=== PATIENT | female | born 1980 | race Caucasian/White ===

== ENCOUNTER 2017-10-08 05:49 | Inpatient (IN) | payer SELFPAY ==
[~2017-10-08] VITALS: Ht 165.1 cm; Wt 111.3 kg
--- NOTE | 2017-10-08 06:08 | PREOPHP ---
DATE OF ADMISSION: 10/08/2017 REASON FOR ADMISSION: 1. Repeat . 2. Preeclampsia 3. Obesity. 4. The patient desires sterilization, 5. Previous section. HISTORY OF PRESENT ILLNESS: This is a 37-year-old female, 5, para 4, who had a previous ray arean section for placenta previa in May 2014, at [facility]. Her EDC confirmed by ultrasound is 1 12/29/2016. Primarily a repeat section was planned for her to perform also a tubal ligation at her request at 39 weeks' gestation. However, she has developed preeclampsia. She is being admi tted and delivered at 37 weeks. She has had elevated blood pressures several times this last week i n the office and mild pedal edema and 2+ protein in the urine. She has denied any other symptoms in cluding headaches and dizziness or blurred vision. She has had no history of previous -ind uced hypertension with the other pregnancies. She has requested sterilization on the basis of multi parity. The alternatives, risks, benefits, and possible complications of both a repeat section and the tubal ligation were discussed with the patient at great length at the office. She was allowed t o ask questions. She was wound about a 1% failure rate of this procedure of sterilization and then she signed the appropriate surgical informed consents. All questions were answered to her satisfact ion. OBSTETRICAL HISTORY: The patient denies any medical problems including diabetes, hypertension, card iovascular disease, liver disease, renal disease, neurological disease, or thyroid problems. ALLERGIES: No known allergies. MEDICATIONS: She takes no medications, but vitamins only. OBSTETRICAL HISTORY: She had 5 pregnancies, 3 that were delivered normally vaginally and the fourth one by section due to placenta previa. REVIEW OF SYSTEMS: A 12-point review of systems is noncontributory. FAMILY HISTORY: Noncontributory. PHYSICAL EXAMINATION: GENERAL: Well-developed and nourished, in no distress, alert and oriented x3. The height is 5 feet 5 inches and a weight is 256 pounds. VITAL SIGNS: Showed the temperature to be 98, blood pressure is 150/80, respirations are 16 per min jovanna. Pulse is 80/minute, regular. HEENT: Within normal limits. The pupils are PERRLA. NECK: Supple. Thyroid is nonpalpable. There is no lymphadenopathy. BREASTS: Show no masses or lumps. LUNGS: Clear to percussion and auscultation. HEART: Normal sinus rhythm without a murmur. ABDOMEN: Soft. The uterus enlarged up to 34 cm above the pubic bone. There is a single baby, long itudinal lie, cephalic presentation. heart is category 1. PELVIC: The cervix is long and closed. Presenting part still high and the membranes are intact. EXTREMITIES: 1+ pedal edema. No varicose veins are present. NEUROLOGIC: Normal. Reflexes are normal. IMPRESSION: 1. 37 weeks gestation. 2. Previous section. 3. Multiparity. 4. Obesity. 5. -induced hypertension. 6. Previous sections. To be admitted tomorrow and delivered by repeat section. Dictated By: MIRA MACKEY/LAM Conf#: [id number] DID#: [id number]
[2017-10-08 06:17] VITALS: Ht 165.1 cm; Wt 111.3 kg
[2017-10-08] MEDS ORDERED: PREN1TAB79 PO (06:17)
[2017-10-08] MEDS ORDERED: CALC600T5 PO (06:17)
[2017-10-08] MEDS ORDERED: MISOPROSTOL 200 MCG TAB PR PRN ×2 (06:30→09:30)
[2017-10-08] MEDS ORDERED: OXYTOCIN 30 UNITS/LR 500 ML IV PRN ×2 (06:30→09:30)
[2017-10-08] MEDS ORDERED: METHYLERGONOVINE 0.2 MG INJ IM PRN (06:30)
[2017-10-08] MEDS ORDERED: CEFAZOLIN 2 GM/50 ML (PMX) 50 ML IV SCH (06:30)
[2017-10-08] MEDS ORDERED: OXYTOCIN 30 UNITS/LR 500 ML IV SCH (06:30)
[2017-10-08] MEDS ORDERED: CARBOPROST 250 MCG INJ IM PRN ×2 (06:30→09:30)
[2017-10-08] MEDS: LACTATED RINGER'S 1,000 ML IV SCH ×4 (06:38→21:50)
[2017-10-08 06:39] LABS: BASOPHIL # 0.1 10^3/ul (0.0-0.1); BASOPHILS % 0.9 % (0.0-2.0); EOSINOPHILS # 0.2 10^3/ul (0.0-0.5); HEMATOCRIT 34.6 % (37.0-47.0); HEMOGLOBIN 11.8 g/dl (12.0-16.0); LYMPHOCYTES % 30.6 % (15.0-51.0); MEAN CORPUSCULAR HEMOGLOBIN 28.5 pg (29.0-33.0); MEAN CORPUSCULAR HGB CONC 34.1 g/dl (32.0-37.0); MEAN CORPUSCULAR VOLUME 83.6 fl (82.0-101.0); MEAN PLATELET VOLUME 11.5 fl (7.4-10.4); MONOCYTE # 0.4 10^3/ul (0.3-0.9); MONOCYTES % 6.6 % (0.0-11.0); NEUTROPHIL # 3.9 10^3/ul (1.6-7.5); NEUTROPHILS % 58.4 % (39.0-77.0); PLATELET COUNT 191 10^3/UL (140-415); RED BLOOD COUNT 4.14 10^6/ul (4.20-5.40); RED CELL DISTRIBUTION WIDTH 14.7 % (11.5-14.5); WHITE BLOOD COUNT 6.7 10^3/ul (4.8-10.8)
[2017-10-08 07:03] LABS: ALBUMIN 2.6 g/dl (3.3-4.9); ALBUMIN/GLOBULIN RATIO 0.81; BILIRUBIN,INDIRECT 0.2 mg/dl (0-1.1); BILIRUBIN,TOTAL 0.2 mg/dl (0.2-1.3); CALCIUM 8.6 mg/dl (8.4-10.2); CREATININE 0.87 mg/dl (0.44-1.00); POTASSIUM 4.4 mmol/L (3.5-5.1); TOTAL PROTEIN 5.8 g/dl (6.1-8.1); URIC ACID 6.7 mg/dl (3.1-7.9)
[2017-10-08 07:04] LABS: INR 0.81; PARTIAL THROMBOPLASTIN TIME 27.2 Sec (25.0-35.0); PROTIME 11.2 Sec (11.9-14.9); PT RATIO 0.9
[2017-10-08] MEDS ORDERED: PHENYLephrine (100 MCG/ML) 5ML SYG ONE ×2 (07:57→08:16)
[2017-10-08] MEDS ORDERED: FENTAnyl 50 MCG/ML VIAL ONE (07:57)
[2017-10-08] MEDS ORDERED: morphine SULFATE/PF (10 MG/10 ML) INJ ONE (07:57)
[2017-10-08 07:59] LABS: ADD UMIC YES; UR ASCORBIC ACID NEGATIVE (NEGATIVE); UR BACTERIA FEW /HPF (NONE SEEN); UR BILIRUBIN (Dip) NEGATIVE (NEGATIVE); UR BLOOD (Dip) NEGATIVE (NEGATIVE); UR CLARITY CLEAR (CLEAR); UR COLOR YELLOW (YELLOW); UR GLUCOSE (Dip) NEGATIVE (NEGATIVE); UR KETONES (Dip) NEGATIVE (NEGATIVE); UR LEUKOCYTE ESTERASE (Dip) NEGATIVE Leu/ul (NEGATIVE); UR NITRITE (Dip) NEGATIVE (NEGATIVE); UR RBC 1 /HPF (0-5); UR SPECIFIC GRAVITY (Dip) 1.007 (1.003-1.030); UR SQUAMOUS EPITHELIAL CELL FEW /HPF (FEW); UR TOTAL PROTEIN (Dip) 3+ mg/dl (NEGATIVE); UR UROBILINOGEN (Dip) NEGATIVE (NEGATIVE)
[2017-10-08] MEDS ORDERED: DEXAMETHASONE 4 MG/ML 1 ML INJ ONE (08:14)
[2017-10-08] MEDS ORDERED: ONDANSETRON 4 MG INJ ONE (08:14)
[2017-10-08] MEDS ORDERED: EPHEDrine SULFATE 50 MG/5 ML SYG ONE (09:18)
--- NOTE | 2017-10-08 09:19 | SIPON ---
Date/Time of Note Date/Time of Note See dictated note. DATE: 10/08/17 TIME: 09:15 Operative Report Preoperative Diagnosis 37 weeks.previous . PIH,Multiparity Postoperative Diagnosis Same.IUGR baby girl. Operation/Procedure Performed Repeat C-Sction.Bilateral tubal ligation. Surgeon Dr.Carlos Alek Finnegan MD historian research assistant . Anesthesia: spinal Estimated blood loss: other Transfusion Required none Specimen Portions of fallopian tubes. Grafts/Implants none Complications none MIRA FINNEGAN MD Oct 08, 2017 09:19
[2017-10-08] MEDS ORDERED: HYDROCODONE/APAP (5/325) TAB PO PRN ×2 (09:30)
[2017-10-08] MEDS ORDERED: LANOLIN 7 GM TUBE TOP PRN (09:30)
[2017-10-08] MEDS ORDERED: KETOROLAC 30 MG INJ IV PRN (10:00)
[2017-10-08] MEDS ORDERED: NALBUPHINE HCL (10 MG/1 ML) INJ IV PRN (10:00)
[2017-10-08] MEDS ORDERED: HYDROmorphONE 0.5 MG/0.5 ML SYG IV PRN ×2 (10:00)
[2017-10-08] MEDS ORDERED: ONDANSETRON 4 MG INJ IV PRN (10:00)
[2017-10-08] MEDS ORDERED: ZOLPIDEM 5 MG TAB PO PRN (10:00)
[2017-10-08] MEDS ORDERED: DIPHENHYDRAMINE 50 MG INJ IV PRN (10:00)
[2017-10-08] MEDS ORDERED: NALOXONE (0.4 MG/ML) INJ IV PRN (10:00)
[2017-10-08] MEDS: OXYTOCIN 30 UNITS/LR 500 ML IV SCH ×3 (10:52→15:59)
--- NOTE | 2017-10-08 12:13 | OPR ---
DATE OF OPERATION: 10/08/2017 PREOPERATIVE DIAGNOSES: 1. 37 weeks gestation. 2. Previous section. 3. -induced hypertension 4. Obesity. 5. Multiparity. POSTOPERATIVE DIAGNOSES: 1. 37 weeks gestation. 2. Previous section. 3. -induced hypertension 4. Obesity. 5. Multiparity. 6. Baby girl, intrauterine growth retardation. OPERATION PERFORMED: Repeat low segment transverse section. Bilateral tubal ligation. SURGEON: Mira Finnegan MD. ORAL PATHOLOGIST: Dr. Elizabeth Lanier ANESTHESIA: Spinal. ESTIMATED BLOOD LOSS: 600 mL. COMPLICATIONS: None. SPECIMENS: Portions of both fallopian tubes were sent to pathology. PROCEDURE AND FINDINGS: With the patient under spinal anesthesia, lying on the table in the dorsal recumbent position, tilted to the left side. She had a Dillon catheter draining her bladder. Her ab domen and upper thighs were prepped with ChloraPrep and after 3 minutes, she was draped in the usual sterile fashion for this procedure. A Pfannenstiel incision was done and carried through all layer s of abdominal wall. Once in the abdomen, the uterine segment was opened transversely and a living female child was delivered and immediately handed to the respiratory team supervisor wire rope fabrication. Delayed cord cla mping was done at 35 seconds. Baby was found to have scores 8 and 9. Sample cord blood was o btained. The placenta was delivered. The uterine cavity cleaned with a clean laparotomy pad. Inci jethro in the uterus closed with continuous running stitch of double 0 PDS in a double layer fashion. Good hemostasis was obtained. Then, the tubal ligation was carried out starting on the left side, picking the tube in its mid portion with a Abingdon clamp. We tied up this base twice with 0 plain c atgut. Then the portion of tube was cut and sent to pathology. The same was repeated on the contra lateral side. The operative sites were checked for bleeders. There were none. Then, the abdomen w as closed in layers. First count of sponges correct at this point. The peritoneum was closed with a double 0 chromic catgut. The fascia was closed with 2 convergent running sutures of 0 Vicryl. Th e subcutaneous tissues were closed with a continuous running stitch of #0 plain catgut. Finally, th e edges of the skin was closed with a 3-0 Monocryl. Sterile pressure dressing was applied and the p atient was taken to recovery room with all vital signs stable. EBL was 600 mL of blood. Needle, sp onge and instrument count at the end of the procedure was correct twice. Dictated By: MIRA FINNEGAN MD CR/NTS Conf#: [id number] DID#: [id number] CC: ELIZABETH LANIER MD;*EndCC*
[2017-10-08 13:25] VITALS: BP 138/72; PULSE 67; RESP 18
[2017-10-08] MEDS: LABETALOL 100 MG TAB PO SCH ×2 (14:00→21:53)
[2017-10-08] MEDS: IBUPROFEN 800 MG TAB PO SCH ×2 (14:00→22:00)
[2017-10-08 16:00] VITALS: BP 129/74; PULSE 74; RESP 18
[2017-10-08] MEDS: CEFAZOLIN 2 GM/50 ML (PMX) 50 ML IV SCH (16:00)
[2017-10-08 20:00] VITALS: BP 141/77; PULSE 67; RESP 17
[2017-10-09] VITALS: BP 119/65; PULSE 75; RESP 17
[2017-10-09] MEDS: CEFAZOLIN 2 GM/50 ML (PMX) 50 ML IV SCH ×3 (00:13→10:08)
[2017-10-09 04:00] VITALS: BP 119/56; PULSE 67; RESP 18
[2017-10-09] MEDS: LABETALOL 100 MG TAB PO SCH ×2 (06:00→17:18)
[2017-10-09] MEDS: IBUPROFEN 800 MG TAB PO SCH ×3 (06:00→22:04)
[2017-10-09] MEDS: LACTATED RINGER'S 1,000 ML IV SCH ×3 (06:41→17:19)
[2017-10-09 08:00] VITALS: BP 131/67; PULSE 78; RESP 18
--- NOTE | 2017-10-09 09:34 | PN ---
Date/Time of Note Date/Time of Note DATE: 10/09/17 TIME: 09:31 OB Subjective Subjective Subjective Doing well,normotensive.Labetalol DC. Passes gases. OB Objective Objective Objective Afebrile BP normal range. Abdomen soft,dressing intact. HEENT: WNL Heart: Rhythm Normal Lungs: Clear Abdomen: WNL Extremities: Normal (Encourage to get up.Will DC Dillon today.) MIRA KWON MD Oct 09, 2017 09:34
[2017-10-09 11:30] LABS: BASOPHILS % 0.4 % (0.0-2.0); EOSINOPHILS # 0.1 10^3/ul (0.0-0.5); EOSINOPHILS % 0.5 % (0.0-7.0); HEMOGLOBIN 9.9 g/dl (12.0-16.0); LYMPHOCYTES % 26.7 % (15.0-51.0); MEAN CORPUSCULAR HEMOGLOBIN 28.3 pg (29.0-33.0); MEAN CORPUSCULAR VOLUME 85.7 fl (82.0-101.0); MEAN PLATELET VOLUME 11.1 fl (7.4-10.4); MONOCYTE # 0.6 10^3/ul (0.3-0.9); MONOCYTES % 5.3 % (0.0-11.0); NEUTROPHIL # 7.4 10^3/ul (1.6-7.5); NEUTROPHILS % 66.6 % (39.0-77.0); PLATELET COUNT 164 10^3/UL (140-415); WHITE BLOOD COUNT 11.1 10^3/ul (4.8-10.8)
[2017-10-09 16:00] VITALS: BP 137/88; PULSE 77; RESP 18
[2017-10-09 20:00] VITALS: BP 134/85; PULSE 70; RESP 18
[2017-10-09] MEDS ORDERED: INFLUENZA VIRUS VACCINE 0.5 ML SYG IM* ONE (20:00)
[2017-10-10] MEDS: LABETALOL 100 MG TAB PO SCH ×3 (01:13→17:42)
[2017-10-10 04:00] VITALS: BP 144/67; PULSE 63; RESP 18
[2017-10-10] MEDS: IBUPROFEN 800 MG TAB PO SCH ×3 (06:06→21:26)
[2017-10-10 07:50] VITALS: BP 128/84; PULSE 67; RESP 20
--- NOTE | 2017-10-10 10:47 | PN ---
Date/Time of Note Date/Time of Note DATE: 10/10/17 TIME: 10:45 OB Subjective Subjective Subjective no c/o bm almost OB Objective Objective Objective vs afebrile abdomen soft wound dry lochia min calf neg for tenderness OB Assessment/Plan Other Assessment: stable po c/s and btl #2 Other plan: d/s home in am TREMAINE VILLAFUERTE MD Oct 10, 2017 10:47
[2017-10-10 15:20] VITALS: BP 138/82; PULSE 68; RESP 20
[2017-10-10 20:00] VITALS: BP 127/66; PULSE 71; RESP 18
[2017-10-11] MEDS: LABETALOL 100 MG TAB PO SCH ×2 (02:58→10:18)
[2017-10-11 04:00] VITALS: BP 133/87; PULSE 67; RESP 17
[2017-10-11] MEDS: IBUPROFEN 800 MG TAB PO SCH (06:08)
[2017-10-11] MEDS ORDERED: DIPHTH/TET/ACEL PERTUSS (ADULT) 0.5 ML VIAL IM* ONE (09:00)
--- NOTE | 2017-10-11 09:42 | PD.PPDC ---
[facility] [place] [place] Discharge Instruction Diagnosis Final Diagnosis: s/p rc/s and btl Condition Patient Condition: Critical Diet Diet: Resume Regular Diet Activity/Restrictions Activity: May Shower Restrictions: No Exercising No Lifting Minimize Stair-climbing No Sexual Activity Nothing in the Vagina No Cherry No Tampons, douche Follow-up Follow-up with Physician: 2, Week/Weeks Return to clinic for [employer] Instructions: Fever greater than 101 Chills Worsening abdominal pain Excessive Vaginal Bleeding More than 2 pads per hour Unable to tolerate diet OB Instructions: Breast Tenderness Depression Blurried Vision Headache Surgical Instructions: Incisional Drainage Incisional Redness TREMAINE VILLAFUERTE MD Oct 11, 2017 09:42
--- NOTE | 2017-10-11 09:53 | DS ---
Date/Time of Note Date/Time of Note DATE: 10/11/17 TIME: 09:45 Obstetrical Discharge Record Final Diagnosis Final Diagnosis: Term delivered Vaginal Delivery Obstetrical Delivery: Bilateral Tubal Ligation Section Section: Repeat Complications Augmentation: No Induction: No Rupture of Membranes: No Condition on Discharge Physical Assessment Last Vitals: vss afebrile abdomen soft wound dry calf neg for tenderness lochia min Voiding: Yes Bowel Movement: Yes Breast: Soft, non-tender Abdomen and Incision: soft wound dry Calf Tenderness: No Patient Condition: Stable TREMAINE VILLAFUERTE MD Oct 11, 2017 09:52
== END 2017-10-11 10:58 | disposition home or self-care (01) | DRG 765 ==
LOC: L-D 05:49 → PP1 13:18
PROVIDERS: ADMIT Specialist; ATTEND Specialist
PROC: 0UL70ZZ Occlusion of Bilateral Fallopian Tubes, Open Approach (ICD-10-PCS; 2017-10-08)
PROC: 10D00Z1 Extraction of Products of Conception, Low, Open Approach (ICD-10-PCS; principal; 2017-10-08 07:30)
DX: O34.211 Maternal care for low transverse scar from previous cesarean delivery (principal); Z68.41 Body mass index [BMI] 40.0-44.9, adult; O36.5930 Maternal care for other known or suspected poor fetal growth, third trimester, not applicable or unspecified; O13.4 Gestational [pregnancy-induced] hypertension without significant proteinuria, complicating childbirth; O99.214 Obesity complicating childbirth; E66.9 Obesity, unspecified; Z30.2 Encounter for sterilization; Z23 Encounter for immunization; Z37.0 Single live birth; Z3A.37 37 weeks gestation of pregnancy
CPT/HCPCS: 80053; 81001; 84560; 85025; 85384; 85610; 85730; 86592; 86850; 86900; 86901; 87340; 88302; 90686; 90715; 94760; 99464; J0690; J1100; J2274; J2370; J2405; J2590; J3010; J7120